=== PATIENT | female | born 1965 | race Hispanic/Latino ===

== ENCOUNTER 2017-12-25 00:34 | Emergency (ER) | payer OTHER ==
[~2017-12-25] VITALS: Ht 152.4 cm; Wt 47.6 kg
[~2017-12-25 00:34] MED LIST: ADVIL200 MG; LEVAQUIN500 MG PO; MUCINEX DM ER1 EACH PO; NICODERM CQ1 EAC1 TOP; NYQUIL D COLD177 ML; PREDNISONE20 MG PO; TESSALON PERLE100 MG PO
[2017-12-25] MEDS ORDERED: ACETAMINOPHEN 325 MG TAB ONE (00:55)
[2017-12-25] MEDS ORDERED: ACETAMINOPHEN 325 MG TAB PO ONE (01:00)
--- NOTE | 2017-12-25 01:22 | Diagnostic Imaging Report ---
EXAM: CHEST 2 VIEWS, PA and lateral INDICATION: History of upper respiratory infection, still with cough COMPARISON: PA and lateral view of the chest September 24, [address] of the chest September 25, 2016 FINDINGS: LINES/TUBES: None LUNGS: Interval resolution of nodular opacities in the right upper lung. New faint opacities in the right lung base. Biapical pleural-parenchymal scarring. PLEURA: No effusions or pneumothorax. HEART AND MEDIASTINUM: Normal size and contour. BONES AND SOFT TISSUES: No acute findings. IMPRESSION: Findings suspicious for atypical infection in the right lung base. Signed by: Dr. Cheryl Watkins M.D. on 12/25/2017 1:19 AM
[2017-12-25 01:26] LABS: BASOPHILS # (AUTO) 0.1 (0.0-0.1); BASOPHILS % 0.4 % (0.0-1.0); EOSINOPHILS # (AUTO) 0.2 (0.0-0.4); EOSINOPHILS % 1.2 % (0.0-6.0); HEMATOCRIT 41.2 % (34.2-44.1); HEMOGLOBIN 13.5 g/dL (12.0-16.0); LYMPHOCYTES # (AUTO) 2.3 (1.0-3.2); LYMPHOCYTES % 17.4 % (18.0-39.1); MEAN CORPUSCULAR HEMOGLOBIN 30.1 pg (28-32); MEAN CORPUSCULAR HGB CONC 32.8 g/dL (31-35); MEAN CORPUSCULAR VOLUME 91.8 fL (81-99); MONOCYTES # (AUTO) 0.7 (0.2-0.8); MONOCYTES % 5.5 % (4.4-11.3); NEUTROPHILS % 75.1 % (38.7-80.0); PLATELET COUNT 355 x10e3/uL (140-360); RED BLOOD COUNT 4.49 x10e6/uL (3.6-5.1); RED CELL DISTRIBUTION WIDTH 12.2 % (11.7-14.4)
[2017-12-25 01:37] LABS: CLARITY,URINE CLEAR (CLEAR); COLOR,URINE YELLOW (YELLOW); KETONES,URINE NEGATIVE (NEGATIVE); LEUKOCYTE ESTERASE ,URINE NEGATIVE (NEGATIVE); NITRITE,URINE NEGATIVE (NEGATIVE)
[2017-12-25 01:38] LABS: BILIRUBIN,URINE NEGATIVE (NEGATIVE); PROTEIN,URINE DIPSTICK TRACE (NEGATIVE); URINE UROBILINOGEN 0.2 mg/dL (0.2 - 1)
[2017-12-25] MEDS ORDERED: SODIUM CHLORIDE 0.9% 1000ML 1,000 ML IV STA (01:40)
[2017-12-25] MEDS ORDERED: LEVOFLOXACIN 750MG/D5W 150ML 150 ML IV STA (01:40)
[2017-12-25] MEDS ORDERED: IPRATROPIUM BROMIDE 0.02% 2.5 ML NEB NEB STA (01:40)
[2017-12-25 01:45] LABS: ALANINE AMINOTRANSFERASE 11 IU/L (0-55); ALBUMIN 4.3 g/dL (3.5-5.0); ALBUMIN/GLOBULIN RATIO 1.2 (0.8-2.0); ALKALINE PHOSPHATASE 83 IU/L (40-150); ANION GAP 15.4 mmol/L (8-16); BLOOD UREA NITROGEN 10 mg/dL (7-26); BUN/CREATININE RATIO 12 (6-25); CALCIUM 9.9 mg/dL (8.4-10.2); CARBON DIOXIDE 26 mmol/L (22-29); CHLORIDE 105 mmol/L (98-107); CREATININE, SERUM 0.82 mg/dL (0.57-1.11); EST GLOMERULAR FILTRATION RATE > 60 ML/MIN (60-); GLUCOSE 104 mg/dL (74-118); POTASSIUM 4.4 mmol/L (3.5-5.1); SODIUM 142 mmol/L (136-145)
[2017-12-25 02:09] LABS: EPITHELIAL CELLS,URINE RARE /LPF; RBC,URINE 21-50 /HPF (0-5); WBC,URINE (MAN) 0-5 /HPF (0-5)
[2017-12-25] MEDS ORDERED: MOTRIN200 MG PO (04:48)
[2017-12-25] MEDS ORDERED: TYLENOL WITH C1 EACH PO (04:48)
[2017-12-25] MEDS ORDERED: LEVAQUIN500 MG PO (04:48)
[2017-12-25 04:54] VITALS: BP 100/53
[2017-12-25] MEDS ORDERED: VENTOLIN HFA18 GM INH (04:54)
== END 2017-12-25 05:29 | disposition home or self-care (01) ==
LOC: ER 00:34
DX: R50.9 Fever, unspecified (principal); R05 Cough; R07.89 Other chest pain; J15.9 Unspecified bacterial pneumonia
CPT/HCPCS: 36415; 71046; 80053; 81001; 85025; 87040; 99284; J7030